=== PATIENT | male | born 1980 | race Asian ===

== ENCOUNTER 2017-02-04 04:12 | Emergency (ER) | payer SELFPAY ==
[~2017-02-04] VITALS: Ht 182.9 cm; Wt 68.0 kg
[2017-02-04] MEDS ORDERED: IBUPROFEN600 MG ORAL (04:43)
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
[2017-02-04 04:50] VITALS: BP 130/89
[2017-02-04 05:55] VITALS: BP 130/89
[2017-02-04 06:00] VITALS: BP 130/89
--- NOTE | 2017-02-04 08:53 | Diagnostic Imaging Report ---
Indication: Facial trauma/pain Technique: CT maxillofacial was performed utilizing automated exposure control without intravenous contrast material. Axial and coronal images were generated. CT dose: Total DLP 581 mGycm; CTDI vol 28.2 mGy Comparison: None Findings: There is left infraorbital soft tissue swelling. No acute fracture is identified. The mandible, nasal bones and orbits appear intact. There is minimal mucosal thickening of the right maxillary sinus. No paranasal sinus air-fluid levels are identified. Visualized intracranial compartment is grossly unremarkable. Impression: Left infraorbital soft tissue swelling but no acute fracture. Minimal mucosal thickening of the right maxillary sinus. The CT scanner at [facility] is accredited by the [employer] and the scans are performed using protocols designed to limit radiation exposure to as low as reasonably achievable to attain images of sufficient resolution adequate for diagnostic evaluation.
== END 2017-02-04 06:00 | disposition home or self-care (01) ==
LOC: EMR 04:48
DX: S05.12XA Contusion of eyeball and orbital tissues, left eye, initial encounter (principal); Y04.2XXA Assault by strike against or bumped into by another person, initial encounter; Y92.511 Restaurant or cafe as the place of occurrence of the external cause
CPT/HCPCS: 70486; 99284